=== PATIENT | male | born 1980 | race Caucasian/White ===

== ENCOUNTER 2016-12-07 22:00 | Emergency (ER) | payer SELFPAY ==
[2016-12-07 22:01] VITALS: BMI 29.5
[2016-12-07 22:15] VITALS: BP 114/77; RESP 20; TEMP 98.3; O2SAT 99
--- NOTE | 2016-12-07 23:25 | C.PDOC ---
History Of Present Illness 36 year old male patient presents to the ED c/o right elbow pain for 2 months. Patient notes having a mechanical fall injury to the area with no deformity. Pt notes pain and limited extension of the left elbow but denies weakness or numbness of the extremity, or any other complaints. Time Seen by Provider: 12/07/16 22:28 Chief Complaint (Nursing): Upper Extremity Problem/Injury History Per: Patient History/Exam Limitations: no limitations Onset/Duration Of Symptoms: Days Current Symptoms Are (Timing): Still Present Severity: Mild Past Medical History Reviewed: Historical Data, Nursing Documentation, Vital Signs Vital Signs: Last Vital Signs Temp 98.3 F 12/07/16 22:11 Pulse 92 H 12/07/16 23:29 Resp 20 12/07/16 22:11 BP 114/77 12/07/16 22:11 Pulse Ox 99 12/08/16 01:56 - Medical History PMH: Diabetes Surgical History: Appendectomy Family History: States: Unknown Family Hx - Social History Hx Tobacco Use: No Hx Alcohol Use: Yes Hx Substance Use: No - Immunization History Hx Tetanus Toxoid Vaccination: No Hx Influenza Vaccination: No Hx Pneumococcal Vaccination: No Review Of Systems Except As Marked, All Systems Reviewed And Found Negative. Musculoskeletal: Positive for: Arm Pain (Right elbow pain) Neurological: Negative for: Weakness, Numbness Physical Exam - Physical Exam Appears: Non-toxic, No Acute Distress Skin: Warm, Dry Head: Atraumatic, Normacephalic Eye(s): bilateral: Normal Inspection Extremity: Normal ROM (Right elbow), No Tenderness (Right elbow), No Deformity, No Swelling, Other (Remainder of RUE normal) Extremity: Bilateral: Normal Color And Temperature Pulses: Left Radial: Normal, Right Radial: Normal Neurological/Psych: Oriented x3, Normal Motor, Normal Sensation ED Course And Treatment O2 Sat by Pulse Oximetry: 99 (Room air) Pulse Ox Interpretation: Normal Medical Decision Making Medical Decision Making: Plans: -X-Ray of right elbow -Reassess and disposition Pt requested X-Ray and done No fracture and dislocation was found On reassessment, patient is resting comfortably, with improvement of elbow pain. Patient remains with no bony tenderness, extremity numbness or weakness. Patient is ambulatory in the emergency department with no signs of discomfort. Patient was advised to follow up with physician/clinic in 1-2 days. Disposition Counseled Patient/Family Regarding: Diagnosis, Need For Followup, Rx Given - Disposition Disposition: HOME/ ROUTINE Disposition Time: 23:23 Condition: STABLE Additional Instructions: Please follow up in clinic Tylenol or advil for pain Return to ER if worse Instructions: Arm Pain (ED) Print Language: MALTESE - Clinical Impression Clinical Impression: Elbow pain, left - Scribe Statement The provider has reviewed the documentation as recorded by the [place] armenta All medical record entries made by the Arnulfo were at my direction and personally dictated by me. I have reviewed the chart and agree that the record accurately reflects my personal performance of the history, physical exam, medical decision making, and the department course for this patient. I have also personally directed, reviewed, and agree with the discharge instructions and disposition.
[2016-12-07 23:30] VITALS: PULSE 92
--- NOTE | 2016-12-08 10:56 | RAD ---
PROCEDURE: Right elbow Radiographs. HISTORY: pain, trauma 2 month ago COMPARISON: None. FINDINGS: BONES: Normal. No fracture. JOINTS: Normal. No dislocation. SOFT TISSUES: Normal. OTHER FINDINGS: None. IMPRESSION: No acute findings related to/accounting for the clinical presentation. Concordant results with the preliminary interpretation rendered by the emergency department physician procedure.
== END 2016-12-07 23:30 | disposition home or self-care (01) ==
LOC: C.ER 22:00
DX: M25.522 Pain in left elbow (principal)